=== PATIENT | male | born 1960 | race African-American/Black ===

== ENCOUNTER 2017-08-09 16:26 | Emergency (ER) | payer OTHER ==
[2017-08-09 16:35] VITALS: BMI 20.6
[2017-08-09] MEDS ORDERED: PEPCID 20 MG IV PREMIX* 20 MG/50 ML BAG IV ONE ×2 (16:55→16:56)
[2017-08-09] MEDS ORDERED: ASPIRIN 81 MG CHEWTAB ONE (16:57)
[2017-08-09] MEDS ORDERED: ASPIRIN 81 MG CHEWTAB PO SCH (17:00)
[2017-08-09 17:11] LABS: BASOPHILS # (AUTO) 0.1 X10^3/uL (0.0-0.1); BASOPHILS % (AUTO) 1.4 % (0.2-1.0); EOSINOPHILS # (AUTO) 0.1 x10^3/uL (0.0-0.2); HEMATOCRIT 50.1 % (42.0-54.0); HEMOGLOBIN 17.8 g/dL (13.5-18.0); LYMPHOCYTES % (AUTO) 22.9 % (21.0-51.0); MEAN CORPUSCULAR HEMOGLOBIN 32.7 pg (27.0-34.0); MEAN CORPUSCULAR HGB CONC 35.4 g/dL (33.0-35.0); MEAN CORPUSCULAR VOLUME 92.5 fL (80.0-100.0); MEAN PLATELET VOLUME 7.3 fL (7.4-11.0); MONOCYTES # (AUTO) 0.5 x10^3/uL (0.3-0.8); MONOCYTES % (AUTO) 10.7 % (0.0-13.0); NEUTROPHILS # (AUTO) 2.8 x10^3/uL (2.2-4.8); PLATELET COUNT 232 X10^3/uL (150.0-450.0); RED BLOOD COUNT 5.42 X10^6/uL (4.7-6.0); RED CELL DISTRIBUTION WIDTH 13.1 % (11.6-16.5); WHITE BLOOD COUNT 4.5 X10^3/uL (3.6-10.0)
[2017-08-09 17:31] LABS: BLOOD UREA NITROGEN 5 mg/dL (7-18); CALCIUM 8.9 mg/dL (8.5-10.1); CHLORIDE 97 mmol/L (98-107); CREATININE 0.91 mg/dL (0.70-1.30); SODIUM 134 mmol/L (136-145); TROPONIN I < 0.02 ng/mL (0-1.5); eGFR BLACK RACES > 60 (>60); eGFR NON BLACK RACES > 60 (>60)
[2017-08-09 17:35] LABS: ALANINE AMINOTRANSFERASE 49 Units/L (12-78); ALBUMIN 3.7 g/dL (3.4-5.0); ALKALINE PHOSPHATASE 84 Units/L (46-116); AMYLASE 74 Units/L (25-115); ASPARTATE AMINO TRANSFERASE 27 Units/L (15-37); CKMB % 1.5 % (<4); CREATINE KINASE 67 Units/L (39-308); CREATINE KINASE MB < 1.0 ng/mL (0-4.0); LIPASE 267 Units/L (73-393); TOTAL PROTEIN 7.5 g/dL (6.4-8.2)
--- NOTE | 2017-08-09 17:46 | CT ---
CT brain without contrast Indication: Altered mental status with syncope Comparison: None available Stop Technique: Multiple axial images of the brain were obtained from the skull base to the vertex without administra tion of IV contrast. Findings: No acute intraparenchymal hemorrhage or mass can be identified. No extra-axial fluid collections are seen. No alteration in the attenuation of the brain parenchyma can be identified to suggest acute o r subacute ischemic change. The ventricular system is symmetric and nondilated. Mild bilateral muco abimael thickening of the maxillary sinuses. IMPRESSION: 1. No acute intracranial process is identified. 2. Mild bilateral maxillary sinus mucosal disease. Reported By:
--- NOTE | 2017-08-09 18:01 | DR.CP ---
HPI - Time Seen Time seen: 16:55 - PCP Primary Care Physician: JUAN RAMON WALKER - HPI Comment HPI Comment: PAIN PERSISTENT AND DIZZINESS IMPROVING. PATIENT WAS DRIVING THEN PACK HIS CAR AND CALL HIS . SHE SAID PATIENT WAS PALE AND DIAPHORETIC. NO RECENT ILLNESS REPORTED. NO NAUSEA OR VOMITING. - Complaint Chief Complaint Doctor Comments: NEAR SYNCOPAL EPISODE, DIZZINESS AND EPIGASTRIC AND LOWER SUBSTRENAL PAIN OVER ONE HOUR. Chief Complaint:: PT. STATES HE WAS DRIVING DOWN THE HIGHWAY AND BECAME DIAPHORETIC AND FELT LIKE HE WAS GOING TO PASS OUT. PT. C/O DIZZINESS. DENIES ANY OTHER PAIN. - Reviewed Nurses Notes Review: Yes - Source History Provided: Patient - Mode of Arrival Mode of Arrival: Ambulatory - Timing Onset of Chief Complaint: 08/09/17 Came on: Suddenly - Duration Duration: Since Onset Duration: Hours - Location Chest Pain Radiation Location: None - Context Onset: With light exertion PE Risk Factors: None History of: None Prehospital Care: None - Quality Quality: Sharp - Severity Severity: Moderate - Modifying Factors Worsens: Nothing Impoves: Nothing - Associated Signs and Symptoms Associated Signs and Symptoms: Diaphoresis PMH - PMH Past Medical History: Yes Past Medical History: COPD, Hypertension Past Surgical History: No Surgical History: Other - Family History History of Family Medical Conditions: No - Social History Does patient currently use any type of tobacco product: Yes Have you used tobacco products in the last 12 months: Yes Type of Tobacco Use: Cigarettes Does any household member use tobacco: No Alcohol Use: Heavy Do you use any recreational Drugs:: No Lives With: Spouse Lives Where: Home - infectious screening In the last 2 months have you had wt loss of >10#?: NO Have you had fever, night sweats or hemotysis?: No Have you traveled outside the country in the last 6 months?: No Isolation: Standard ROS - Review of Systems Constitutional: Weakness, Fatigue. negative: Chills, Fever Eyes: No Symptoms Reported. negative: Eye Pain, Discharge ENTM: No Symptoms Reported. negative: Ear Pain, Nose Discharge, Nose Congestion , Throat Pain Respiratoy: No Symptoms Reported. negative: Productive Cough, Non-Productive Cough, Short of Breath, Wheezing, Hemoptysis Cardiovascular: Chest Pain (LOWER SUBSTERNAL PAIN). negative: Syncope (NEAR SYNCOPE) Gastrointestinal/Abdominal: Abdominal Pain (EPIGASTRIC PAIN), Nausea Genitourinary: No Symptoms Reported Neurological: No Symptoms Reported, Weakness, Dizziness. negative: Headache Musculoskeletal: No Symptoms Reported Integumentary: No Symptoms Reported Hematologic/Lymphatic: No Symptoms Reported Endocrine: No Symptoms Reported All Other Systems: Reviewed and Negative PE - Vitals Vitals: Temperature 98.0 F Pulse Rate [Right Brachial] 73 Pulse Rate 71 Respiratory Rate 16 Blood Pressure [Right Arm] 137/87 Blood Pressure 163/101 O2 Sat by Pulse Oximetry 97 - General Limitations: No Limitations General Appearance: Alert - Head Head Exam: Normal Inspection - Eyes Eye exam: Normal Appearance - ENT ENT Exam: Normal External Ear Exam - Chest Chest Inspection: Symmetric Chest Wall Rise - Respiratory Respiratory Exam: Normal Lung Sounds Bilat Respiratory Exam: Bilateral Clear to Auscultation - Cardiovascular Cardiovascular Exam: Regular Rate, Normal Rhythm, Normal Heart Sounds Pulse: Normal, Radial, Femoral Edema: Normal - Abdominal Exam Abdominal Exam: Normal Bowel Sounds, Soft. negative: Tenderness - Extremities Extremities Exam: Normal Inspection - Back Back Exam: Normal Inspection - Neurologic Neurological Exam: Alert, Oriented X3 - Psychiatric Psychiatric Exam: Normal Affect, Normal Mood - Skin Skin Exam: Normal Color MDM - Additional Information Additional Information Obtained From: Family - Differential Diagnosis Differential Diagnosis: Angina, Chest Wall Pain, Cholelithasis, CHF, Costochondritis, Esophageal Reflux/Spasm, Gastritis, Myocardial Infarction, Pericarditis, Pleuritis, Pancreatitis, Pneumonia, Pneumothorax Course - Treatment Treatment: SEE ORDERS. CHEST PAIN IMPROVE SPONTANOUSLY IN ED. DIZZINESS IMPROVING. - Education/Counseling Education/Counseling: Patient, Education Educated On: Diagnosis, Needs for Follow Up ROR - Labs Reviewed Laboratory Results Reviewed?: Yes Result Diagrams: 08/09/17 17:01 08/09/17 17:01 Laboratory: WBC 4.5 X10^3/uL (3.6-10.0) 08/09/17 17:01 RBC 5.42 X10^6/uL (4.7-6.0) 08/09/17 17:01 Hgb 17.8 g/dL (13.5-18.0) 08/09/17 17:01 Hct 50.1 % (42.0-54.0) 08/09/17 17:01 MCV 92.5 fL (80.0-100.0) 08/09/17 17:01 MCH 32.7 pg (27.0-34.0) 08/09/17 17:01 MCHC 35.4 g/dL (33.0-35.0) H 08/09/17 17:01 RDW 13.1 % (11.6-16.5) 08/09/17 17:01 Plt Count 232 X10^3/uL (150.0-450.0) 08/09/17 17:01 MPV 7.3 fL (7.4-11.0) L 08/09/17 17: Neut % 63.0 % (42.0-75.0) 08/09/17 17: Lymph % 22.9 % (21.0-51.0) 08/09/17 17: [place] % 10.7 % (0.0-13.0) 08/09/17 17:01 Eos % 2.0 % (0.9-2.9) 08/09/17 17:01 Baso % 1.4 % (0.2-1.0) H 08/09/17 17:01 Neut # 2.8 x10^3/uL (2.2-4.8) 08/09/17 17:01 Lymph # 1.0 X10^3/uL (1.3-2.9) L 08/09/17 17:01 [place] # 0.5 x10^3/uL (0.3-0.8) 08/09/17 17:01 Eos # 0.1 x10^3/uL (0.0-0.2) 08/09/17 17:01 Baso # 0.1 X10^3/uL (0.0-0.1) 08/09/17 17:01 Absolute Nucleated RBC 0.1 /100WBC 08/09/17 17:01 Sodium 134 mmol/L (136-145) L 08/09/17 17:01 Corrected Sodium TNP 08/09/17 17: Potassium 3.4 mmol/L (3.5-5.1) L 08/09/17 17:01 Chloride 97 mmol/L (98-107) L 08/09/17 17:01 Carbon Dioxide 27.0 mmol/L (21-32) 08/09/17 17:01 BUN 5 mg/dL (7-18) L 08/09/17 17:01 Creatinine 0.91 mg/dL (0.70-1.30) 08/09/17 17:01 Est GFR (MDRD) Af Amer > 60 (>60) 08/09/17 17:01 Est GFR (MDRD) Non-Af > 60 (>60) 08/09/17 17:01 Glucose 102 mg/dL (65-99) H 08/09/17 17: Calcium 8.9 mg/dL (8.5-10.1) 08/09/17 17: Corrected Calcium TNP 08/09/17 17: Total Bilirubin 0.40 mg/dL (0.2-1.0) 08/09/17 17:01 AST 27 Units/L (15-37) 08/09/17 17: ALT 49 Units/L (12-78) 08/09/17 17:01 Alkaline Phosphatase 84 Units/L (46-116) 08/09/17 17:01 Creatine Kinase 67 Units/L (39-308) 08/09/17 17:01 CK-MB (CK-2) < 1.0 ng/mL (0-4.0) 08/09/17 17:01 CK/CKMB % Calc 1.5 % (<4) 08/09/17 17: Troponin I < 0.02 ng/mL (0-1.5) 08/09/17 17:01 Total Protein 7.5 g/dL (6.4-8.2) 08/09/17 17:01 Albumin 3.7 g/dL (3.4-5.0) 08/09/17 17: Globulin 3.8 g/dL (2.5-4.5) 08/09/17 17:01 Albumin/Globulin Ratio 1.0 Ratio (1.1-2.1) L 08/09/17 17:01 Amylase 74 Units/L (25-115) 08/09/17 17: Lipase 267 Units/L (73-393) 08/09/17 17:01 Specimen Type Clean catch urine 08/09/17 18:43 Urine Color Yellow (YELLOW) 08/09/17 18:43 Urine Appearance Clear (CLEAR) 08/09/17 18:43 Urine pH 7.0 (5.0 - 8.0) 08/09/17 18:43 Ur Specific [place] 1.010 (1.000-1.030) 08/09/17 18:43 Urine Protein Negative (NEGATIVE) 08/09/17 18:43 Urine Glucose (UA) Negative (NEGATIVE) 08/09/17 18:43 Urine Ketones Negative (NEGATIVE) 08/09/17 18:43 Urine Occult Blood Negative (NEGATIVE) 08/09/17 18:43 Urine Nitrite Negative (NEGATIVE) 08/09/17 18:43 Urine Bilirubin Negative (NEGATIVE) 08/09/17 18:43 Urine Urobilinogen Normal (NORMAL) 08/09/17 18:43 Ur Leukocyte Esterase Negative (NEGATIVE) 08/09/17 18:43 Urine RBC None seen /HPF (NEGATIVE) 08/09/17 18:43 Urine WBC None seen /HPF (NEGATIVE) 08/09/17 18:43 Ur Squamous Epith Cells Rare /HPF (NEGATIVE) 08/09/17 18:43 Urine Bacteria Negative /HPF (NEGATIVE) 08/09/17 18:43 Ur Culture Indicated? No/not indicated 08/09/17 18:43 - XRAY XRAY Interpreted by: Radiologist XRAY Findings: REPORT DISCUSS WITH PATIENT. - EKG Rhythm: NSR (EKG NOTED) - Diagnosis Discharge Problem: Near syncope, Sinusitis Chest pain Qualifiers: Chest pain type: precordial pain Qualified Code(s): R07.2 - Precordial pain Abdominal pain Qualifiers: Abdominal location: epigastric Qualified Code(s): R10.13 - Epigastric pain - Discharge Plan Disposition: HOME, SELF-CARE Condition: Stable Prescriptions: Amoxicillin/Potassium Clav [Augmentin Xr 1,000-62.5 Tab] 1 tab PO Q12H #20 tab.sr Cetirizine HCl [Zyrtec Tab 10 mg] 10 mg PO DAILY #30 tab Ranitidine HCl [ZANTAC TAB 150 MG *] 150 mg PO BID #60 tab - Follow ups/Referrals Follow ups/Referrals: MYESHA ESCUDERO [Primary Care Provider] - 08/10/17 - Instructions Instructions: Vertigo, [id number], Sinusitis, Adult, [id number], Near- Syncope, [id number], Chest Pain Observation Additional Instructions: return to ed if worse.
--- NOTE | 2017-08-09 19:01 | RAD ---
HISTORY: Syncopal episode Study: Single view chest Comparison: 01/11/2013 Findings: The lungs are clear without consolidation, effusion or pneumothorax. The cardiac and mediastinal con tours are within normal limits. The soft tissues are unremarkable. IMPRESSION: 1. No acute cardiopulmonary abnormality. Reported By:
[2017-08-09 19:04] LABS: BILIRUBIN,URINE NEGATIVE (NEGATIVE); BLOOD/HEMOGLOBIN,URINE NEGATIVE (NEGATIVE); GLUCOSE, URINE NEGATIVE (NEGATIVE); KETONES,URINE NEGATIVE (NEGATIVE); LEUKOCYTE ESTERASE ,URINE NEGATIVE (NEGATIVE); NITRITES,URINE NEGATIVE (NEGATIVE); PROTEIN,URINE NEGATIVE (NEGATIVE); UROBILINOGEN,URINE NORMAL (NORMAL)
[2017-08-09 19:10] LABS: APPEARANCE,URINE CLEAR (CLEAR); COLOR,URINE YELLOW (YELLOW)
[2017-08-09 19:11] LABS: BACTERIA,URINE NEGATIVE /HPF (NEGATIVE); RBC,URINE NONE SEEN /HPF (NEGATIVE); SQUAMOUS EPITHELIAL CELL,UR RARE /HPF (NEGATIVE)
[2017-08-09] MEDS ORDERED: ROCEPHIN VIAL 1 GM 1 GM in NS 50 ML IV + SPIKE MINIBAG* 50 ML IV ONE (19:24)
[2017-08-09] MEDS ORDERED: ROCEPHIN VIAL 1 GM ONE (19:34)
[2017-08-09] MEDS ORDERED: NS 50 ML IV 50 ML IV ONE (19:34)
[2017-08-09 20:19] VITALS: BP 137/87
== END 2017-08-09 20:15 | disposition home or self-care (01) ==
LOC: ER 16:26
DX: R55 Syncope and collapse (principal); J32.9 Chronic sinusitis, unspecified; R07.2 Precordial pain; R10.13 Epigastric pain
CPT/HCPCS: 36415; 70450; 71010; 80053; 81001; 82150; 82550; 82553; 83690; 84484; 85025; 93005; 93010; 96365; 96374; 96375; 99283; 99284; A4222; S0028; J0696